=== PATIENT | male | born 1970 | race Caucasian/White ===

== ENCOUNTER 2019-08-14 15:59 | Emergency (ER) | payer OTHER ==
[2019-08-14 16:06] VITALS: BP 128/87; PULSE 122; TEMP 101.7
[2019-08-14] MEDS ORDERED: ACETAMINOPHEN 325 MG TABLET (FP) PO ONE (16:08)
== END 2019-08-14 16:48 | disposition home or self-care (01) ==
LOC: EDBD 15:59 → JER 15:59
DX: R50.9 Fever, unspecified (principal); R53.1 Weakness; R19.7 Diarrhea, unspecified
CPT/HCPCS: 71046-TC-FY; 99283-25